=== PATIENT | female | born 1945 | race Caucasian/White ===

== ENCOUNTER 2016-10-04 09:19 | Day surgery (SDC) | payer MEDICARE ==
--- NOTE | ~2016-10-04 | EGD ---
EGD REPORT [facility] [address] [place]. [address] NAME: GIOVANNI DIGGS : [birth year] STATUS : REG [facility]#: [id number] AGE: 71 ADM/REG DATE : 10/04/16 MR#: [id number] REPORT SERV DATE: 10/04/16 DICTATED BY: SKYLAR BROWN DATE: 10/04/16 REPORT STATUS : Draft TRANSCRIBED BY: [facility] DATE: 10/04/16 Endoscopy Center Patient Name: Giovanni Diggs Date of : 1945 Attending MD: DIAMOND BROWN MD Procedure Date No Time: 10/04/2016 Procedure: Upper GI endoscopy Indications: Gastro-esophageal reflux disease Referring MD: LIZY PABON Medicines: See the Anesthesia note for documentation of the administered medications Complications: No immediate complications. Estimated blood loss: None. Procedure: Pre-Anesthesia Assessment: - ASA Grade Assessment: III - A patient with severe systemic disease. - Prior to the procedure, a History and Physical was performed, and patient medications and allergies were reviewed. The patient's tolerance of previous anesthesia was also reviewed. The risks and benefits of the procedure and the sedation options and risks were discussed with the patient. All questions were answered, and informed consent was obtained. Prior Anticoagulants: The patient has taken aspirin, last dose was 3 days prior to procedure. After reviewing the risks and benefits, the patient was deemed in satisfactory condition to undergo the procedure. After obtaining informed consent, the endoscope was passed under direct vision. Throughout the procedure, the patient's blood pressure, pulse, and oxygen saturations were monitored continuously. The GIF [id number] was introduced through the mouth, and advanced to the second part of duodenum. The upper GI endoscopy was accomplished without difficulty. The patient tolerated the procedure well. Findings: The examined duodenum was normal. Diffuse mild inflammation characterized by congestion (edema) and erythema was found in the gastric antrum. Biopsies were taken with a cold forceps for histology. Three small sessile polyps with no stigmata of recent bleeding were found in the stomach. These polyps were removed with a cold snare. Resection and retrieval were complete. A small hiatus hernia was present. The cardia and gastric fundus were normal on retroflexion. EGD REPORT [address] [address] NAME: GIOVANNI DIGGS : [birth year] STATUS : REG [facility]#: [id number] AGE: 71 ADM/REG DATE : 10/04/16 MR#: [id number] REPORT SERV DATE: 10/04/16 DICTATED BY: SKYLAR BROWN DATE: 10/04/16 REPORT STATUS : Draft [facility] DATE: 10/04/16 A small hiatus hernia was present. Impression: - Normal examined duodenum. - Gastritis. Biopsied. - Three gastric polyps. Resected and retrieved. - Hiatus hernia. - Hiatus hernia. Recommendation: - Patient has a contact number available for emergencies. The signs and symptoms of potential delayed complications were discussed with the patient. Return to normal activities tomorrow. Written discharge instructions were provided to the patient. - Regular diet. - Continue present medications. - Follow an antireflux regimen indefinitely. - Await pathology results. Procedure Code(s): --- Professional --- 31009, Esophagogastroduodenoscopy, flexible, transoral; with removal of tumor(s), polyp(s), or other lesion(s) by snare technique Diagnosis Code(s): --- Professional --- K29.70, Gastritis, unspecified, without bleeding K31.7, Polyp of stomach and duodenum K44.9, Diaphragmatic hernia without obstruction or gangrene K21.9, Gastro-esophageal reflux disease without esophagitis CPT copyright 2013 [employer] [place] [employer]. All rights reserved. The codes documented in this report are preliminary and upon medical biller/coder review may be revised to meet current compliance requirements. DIAMOND BROWN MD 10/04/2016 11:26 AM This report has been signed electronically. Number of Addenda: 0 Note Initiated On: 10/04/2016 11:12 AM Scope Withdrawal Time 0 hours 0 minutes 0 seconds [address] [place] [address]
--- NOTE | ~2016-10-04 | EGD ---
EGD REPORT [facility] [address] [place]. [address] NAME: GIOVANNI DIGGS : [birth year] STATUS : REG [facility]#: [id number] AGE: 71 ADM/REG DATE : 10/04/16 MR#: [id number] REPORT SERV DATE: 10/04/16 DICTATED BY: SKYLAR BROWN DATE: 10/04/16 REPORT STATUS : Draft TRANSCRIBED BY: [facility] DATE: 10/04/16 Endoscopy Center Patient Name: Giovanni Diggs Date of : 1945 Attending MD: DIAMOND BROWN MD Procedure Date No Time: 10/04/2016 Procedure: Colonoscopy Indications: High risk colon cancer surveillance: Personal history of colonic polyps Referring MD: LIZY PABON Medicines: See the Anesthesia note for documentation of the administered medications Complications: No immediate complications. Estimated blood loss: None. Procedure: Pre-Anesthesia Assessment: - ASA Grade Assessment: III - A patient with severe systemic disease. - Prior to the procedure, a History and Physical was performed, and patient medications and allergies were reviewed. The patient's tolerance of previous anesthesia was also reviewed. The risks and benefits of the procedure and the sedation options and risks were discussed with the patient. All questions were answered, and informed consent was obtained. Prior Anticoagulants: The patient has taken no previous anticoagulant or antiplatelet agents. After reviewing the risks and benefits, the patient was deemed in satisfactory condition to undergo the procedure. After I obtained informed consent, the scope was passed under direct vision. Throughout the procedure, the patient's blood pressure, pulse, and oxygen saturations were monitored continuously. The PCF [id number] was introduced through the anus and advanced to the cecum, identified by appendiceal orifice and ileocecal valve. The ileocecal valve, appendiceal orifice and rectum were photographed. The entire colon was examined. The colonoscopy was performed without difficulty. The patient tolerated the procedure well. The quality of the bowel preparation was adequate. Findings: The perianal and digital rectal examinations were normal. Two sessile polyps were found in the proximal descending colon. The polyps were small in size. These polyps were removed with a cold snare. Resection was complete, but the polyp tissue was only partially retrieved. One polyp recovered and one lost EGD REPORT [address] [place]. [address] NAME: GIOVANNI DIGGS : [birth year] STATUS : REG [facility]#: [id number] AGE: 71 ADM/REG DATE : 10/04/16 MR#: [id number] REPORT SERV DATE: 10/04/16 DICTATED BY: SKYLAR BROWN DATE: 10/04/16 REPORT STATUS : Draft [facility]ANSCRIBED BY: [employer] [facility] DATE: 10/04/16 A sessile polyp was found in the sigmoid colon. The polyp was 4 mm in size. The polyp was removed with a cold snare. Resection and retrieval were complete. Multiple small and large-mouthed diverticula were found in the sigmoid colon and in the descending colon. Non-bleeding internal hemorrhoids were found during retroflexion and were Grade I (internal hemorrhoids that do not prolapse). No other significant abnormalities were identified in a careful examination of the remainder of the colon. Impression: - Two small polyps in the proximal descending colon. Complete resection. Partial retrieval. - One 4 mm polyp in the sigmoid colon. Resected and retrieved. - Diverticulosis in the sigmoid colon and in the descending colon. - Non-bleeding internal hemorrhoids. Recommendation: - Patient has a contact number available for emergencies. The signs and symptoms of potential delayed complications were discussed with the patient. Return to normal activities tomorrow. Written discharge instructions were provided to the patient. - High fiber diet indefinitely. - Discharge patient to home. - Await pathology results. - Repeat colonoscopy in 5 years for surveillance. Procedure Code(s): --- Professional --- 50381, Colonoscopy, flexible, proximal to splenic flexure; with removal of tumor(s), polyp(s), or other lesion(s) by snare technique Diagnosis Code(s): --- Professional --- D12.5, Benign neoplasm of sigmoid colon D12.4, Benign neoplasm of descending colon K64.0, First degree hemorrhoids K57.30, Diverticulosis of large intestine without perforation or abscess without bleeding Z86.010, Personal history of colonic polyps CPT copyright 2013 [employer] [place]. All rights reserved. The codes documented in this report are preliminary and upon flower planter review may be revised to meet current compliance requirements. EGD REPORT [facility] [address] [address] NAME: GIOVANNI DIGGS : [birth year] STATUS : REG [facility] PAT#: [id number] AGE: 71 ADM/REG DATE : 10/04/16 MR#: [id number] REPORT SERV DATE: 10/04/16 DICTATED BY: SKYLAR BROWN DATE: 10/04/16 REPORT STATUS : Draft TRANSCRIBED BY: [employer] DATE: 10/04/16 DIAMOND BROWN MD 10/04/2016 11:46 AM This report has been signed electronically. Number of Addenda: 0 Note Initiated On: 10/04/2016 11:11 AM Scope Withdrawal Time 0 hours 11 minutes 47 seconds [address] [address]
[~2016-10-04 09:19] MED LIST: ADVAIR INH; ALBUTEROL0.63 MG/3 INH; ASA5GR PO; BENICAR20 PO; FISH OIL1200 MG PO; FLONASE NAS; HYZAAR 50/12.51 TAB PO; LEVAQUIN5T PO; MEDROLPAK4 PO; MEVACOR PO; MUCINEX1200 MG PO; MULTI-VIT HP OR; MULTIVITAMI1 PO; NEXIUM40 PO; PRAVAC PO; PROVHFA INH; SPIRIVA INH; STERAPRED DS10 MG; TUDORZA PRESS400 MCG INH; ZOL50 PO; [UNRECOGNIZED DRUG - OTHER] INH
== END 2016-10-04 23:59 | disposition home or self-care (01) ==
LOC: DMU 09:19
PROVIDERS: Internal Medicine Gastroenterology
PROC: 0DBM8ZX Excision of Descending Colon, Via Natural or Artificial Opening Endoscopic, Diagnostic (ICD-10-PCS; principal; 2016-10-04 11:00)
PROC: 0DBN8ZX Excision of Sigmoid Colon, Via Natural or Artificial Opening Endoscopic, Diagnostic (ICD-10-PCS; 2016-10-04 11:00)
PROC: 0DB68ZX Excision of Stomach, Via Natural or Artificial Opening Endoscopic, Diagnostic (ICD-10-PCS; 2016-10-04 11:00)
DX: D12.4 Benign neoplasm of descending colon (principal); K64.0 First degree hemorrhoids; K29.50 Unspecified chronic gastritis without bleeding; K57.30 Diverticulosis of large intestine without perforation or abscess without bleeding; K31.7 Polyp of stomach and duodenum; K44.9 Diaphragmatic hernia without obstruction or gangrene; K21.9 Gastro-esophageal reflux disease without esophagitis; I10 Essential (primary) hypertension; J44.9 Chronic obstructive pulmonary disease, unspecified; J45.909 Unspecified asthma, uncomplicated; E78.00 Pure hypercholesterolemia, unspecified; M19.90 Unspecified osteoarthritis, unspecified site; F32.9 Major depressive disorder, single episode, unspecified; Z86.010 Personal history of colon polyps; Z88.5 Allergy status to narcotic agent; Z91.041 Radiographic dye allergy status; Z79.82 Long term (current) use of aspirin; Z79.899 Other long term (current) drug therapy; Z98.890 Other specified postprocedural states
CPT/HCPCS: 88305